=== PATIENT | female | born 1960 | race Caucasian/White ===

== ENCOUNTER 2017-03-05 20:38 | Emergency (ER) | payer MEDICARE, OTHER ==
[~2017-03-05] VITALS: Ht 170.2 cm; Wt 136.1 kg
[~2017-03-05 20:38] MED LIST: AMIT50 PO; ASPI325 PO; ATOR20 PO; CARV6.25 PO; CODACE30 PO; CODEINE #3 PO; CRUTCH3 USE; CYCL10 PO; DICL75ER PO; DULO60 PO; EXTRA STRENGTH500 MG PO; Ecotrin325 MG PO; HYDACE10B PO; Hydrochlorothia50 MG PO; LOSHYD PO; MELO7.5 PO; METF500 PO; OXYC5; Prilosec Otc20 MG PO; ROXICODONE5 MG PO
[2017-03-05] MEDS ORDERED: HYDCHL50 PO (21:41)
[2017-03-05 22:12] LABS: Influenza A Negative (NEGATIVE); Influenza B Negative (NEGATIVE)
[2017-03-05] MEDS ORDERED: GUAIFENESIN1200 MG PO (22:15)
[2017-03-05] MEDS ORDERED: DEXT30SU PO (22:15)
== END 2017-03-05 22:15 | disposition home or self-care (01) ==
LOC: ER 20:38
PROVIDERS: Physician Assistant
DX: B34.9 Viral infection, unspecified (principal); Z88.6 Allergy status to analgesic agent; Z88.5 Allergy status to narcotic agent; Z79.899 Other long term (current) drug therapy; Z79.84 Long term (current) use of oral hypoglycemic drugs; Z98.51 Tubal ligation status
CPT/HCPCS: 87804; 96372; 99283; J1885

== ENCOUNTER 2022-09-13 08:08 | Day surgery (SDC) | payer MEDICARE ==
[2022-09-13] VITALS (20 sets, daily range): BP systolic 114–184; BP diastolic 53–130
[~2022-09-13] VITALS: Ht 167 cm; Wt 108.1 kg
[~2022-09-13 08:08] MED LIST changes: +DEXT30SU PO; +GABA300 PO; +GUAIFENESIN1200 MG PO; +HYDCHL50 PO
--- NOTE | 2022-09-13 09:12 | NUR ---
Ambulatory in Day Surgery History, Chart, Medications and Allergies reviewed before start of procedure. Pre-Op teaching done. Pt verbalizes understanding. Patient States Post-Procedure ride home has been arranged.
--- NOTE | 2022-09-13 09:15 | NUR ---
Lungs clear anteriorly to Auscultation.
--- NOTE | 2022-09-13 10:18 | NUR ---
09/13/22 1018 Glenny Darling HISTORY, CHART, MEDICATIONS AND ALLERGIES REVIEWED BEFORE START OF PROCEDURE. PATIENT CONFIRMS NPO STATUS AND AGREES WITH SCHEDULED PROCEDURE. 3-LEAD EKG REVIEWED WITH PHYSICIAN PRIOR TO START OF PROCEDURE. MONITOR INTACT WITH CONTINUOUS PULSE OXIMETRY,CAPNOGRAPHY, 3-LEAD EKG, INTERMITTENT BP. SUPPLEMENTAL O2 TO BE TITRATED THROUGHOUT PROCEDURE TO MAINTAIN O2 SATURATION ABOVE 90%. PATIENT DETERMINED TO BE ASA APPROPRIATE FOR PROPOFOL SEDATION PRIOR TO START OF PROCEDURE BY DR. EDDY. BMI 39, DR. DOTSON.
--- NOTE | 2022-09-13 10:20 | NUR ---
REPORT RECIEVED. PT RESTLESS. VSS ON ROOM AIR. DR EDDY AT BEDSIDE
--- NOTE | 2022-09-13 10:47 | NUR ---
Discharge instructions reviewed with patient. Patient verbalizes understanding. Copy given to patient to take home. Patient up to Ambulate independently. Gait steady. UP TO RESTROOM Discharged via wheelchair to private car for ride home.
== END 2022-09-13 10:49 | disposition home or self-care (01) ==
LOC: ORSCMMR 08:08 → ORD 09:00 → ORSCMMR 09:00
PROVIDERS: Internal Medicine Gastroenterology
PROC: 0DB78ZX Excision of Stomach, Pylorus, Via Natural or Artificial Opening Endoscopic, Diagnostic (ICD-10-PCS; principal; 2022-09-13 09:00)
PROC: 0DB98ZX Excision of Duodenum, Via Natural or Artificial Opening Endoscopic, Diagnostic (ICD-10-PCS; principal; 2022-09-13 09:00)
PROC: 0DJD8ZZ Inspection of Lower Intestinal Tract, Via Natural or Artificial Opening Endoscopic (ICD-10-PCS; principal; 2022-09-13 09:00)
PROC: 0DB48ZX Excision of Esophagogastric Junction, Via Natural or Artificial Opening Endoscopic, Diagnostic (ICD-10-PCS; principal; 2022-09-13 09:00)
DX: D46.4 Refractory anemia, unspecified (principal); R19.5 Other fecal abnormalities; K21.9 Gastro-esophageal reflux disease without esophagitis; K57.30 Diverticulosis of large intestine without perforation or abscess without bleeding; K44.9 Diaphragmatic hernia without obstruction or gangrene; I10 Essential (primary) hypertension; E11.9 Type 2 diabetes mellitus without complications; E78.00 Pure hypercholesterolemia, unspecified; Z79.84 Long term (current) use of oral hypoglycemic drugs; Z79.899 Other long term (current) drug therapy; Z87.891 Personal history of nicotine dependence
CPT/HCPCS: 82947; 88305; 88342; A9270; J2250; J2704; J7120

== ENCOUNTER 2024-06-15 08:47 | Emergency (ER) | payer MEDICARE, OTHER ==
[~2024-06-15] VITALS: Ht 170.2 cm; Wt 113.4 kg
[2024-06-15] MEDS ORDERED: Ondansetron 4 MG SoluTab SL ONE (09:40)
[2024-06-15 09:57] LABS: BASOPHILS ABSOLUTE AUTO 0.06 K/mm3 (0.00-0.23); BASOPHILS PERCENT AUTO 0 % (0-2); EOSINOPHILS ABSOLUTE AUTO 0.03 K/mm3 (0.00-0.68); EOSINOPHILS PERCENT AUTO 0 % (0-6); Hematocrit 32.9 % (33.0-51.0); Hemoglobin 10.9 g/dL (11.5-16.0); IMMATURE GRAN ABSOLUTE AUTO 0.11 K/mm3 (0.00-0.10); IMMATURE GRAN PERCENT AUTO 1 % (0-1); LYMPHOCYTES ABSOLUTE AUTO 0.89 K/mm3 (0.84-5.20); LYMPHOCYTES PERCENT AUTO 5 % (21-46); MONOCYTES ABSOLUTE AUTO 1.43 K/mm3 (0.16-1.47); MONOCYTES PERCENT AUTO 8 % (4-13); Mean Corpuscular HGB 25.6 pg (26.0-34.0); Mean Corpuscular HGB Conc 33.1 g/dL (31.5-36.5); Mean Corpuscular Volume 77 fL (80-100); Mean Platelet Volume 9.2 fL (9.1-12.4); NEUTROPHILS ABSOLUTE AUTO 14.83 K/mm3 (1.96-9.15); NEUTROPHILS PERCENT AUTO 86 % (41-73); Platelet Count 330 K/mm3 (150-400); RDW Coefficient Variation 16.1 % (11.7-14.2); Red Blood Cell Count 4.26 M/mm3 (3.80-5.20); White Blood Cell Count 17.35 K/mm3 (4.00-11.30)
[2024-06-15 10:19] LABS: Albumin, Blood 2.9 g/dL (3.4-5.0); Albumin/Globulin Ratio 0.6 (0.8-1.8); Bilirubin, Total 0.9 mg/dL (0.1-1.0); Bun/Creatinine Ratio 16.9 (12.0-20.0); Calcium, Blood 8.5 mg/dL (8.5-10.1); Creatinine, Blood 1.48 mg/dL (0.40-1.00); Globulin, Blood 5.1 g/dL (2.2-4.0); Potassium, Blood 4.3 mmol/L (3.5-5.5)
[2024-06-15 10:45] LABS: Source, Urine Clean Catch
[2024-06-15 11:04] LABS: Appearance, Urine Cloudy (Clear); Bilirubin, Urine Neg (Neg); Blood, Urine 4+ (Neg); Color, Urine Yellow (P-Yellow); Glucose Qualitative, Urine Neg (Neg); Ketones, Urine Neg (Neg); Leukocyte Esterase, Urine 3+ (Neg); Nitrite, Urine Pos (Neg); Protein, Urine 3+ (Neg); Urobilinogen, Urine 2+ (Normal)
[2024-06-15 11:10] LABS: Squamous Epithelial Cells Mod /hpf (Few); White Blood Cells, Urine 50-100 /hpf (0-5)
[2024-06-15 11:11] LABS: Bacteria Many /hpf
[2024-06-15] MEDS ORDERED: AMITRIPTYLINE150 M6 PO (11:19)
[2024-06-15] MEDS ORDERED: LOSARTAN-HCTZ1 EAC5 PO (11:20)
[2024-06-15] MEDS ORDERED: CefTRIAXone Sodium 1,000 MG in NS 100 ML IV ONE (11:20)
[2024-06-15] MEDS ORDERED: NS 1,000 ML IV SCH (12:05)
[2024-06-15 14:35] VITALS: BP 150/80
[2024-06-15] MEDS ORDERED: CEFD300 PO (14:37)
[2024-06-15] MEDS ORDERED: ONDA4ODT MM (14:37)
== END 2024-06-15 14:56 | disposition home or self-care (01) ==
LOC: ER 08:47
PROVIDERS: Emergency Medicine
DX: N10 Acute pyelonephritis (principal); E11.9 Type 2 diabetes mellitus without complications; I10 Essential (primary) hypertension; E78.5 Hyperlipidemia, unspecified; Z88.6 Allergy status to analgesic agent; Z88.5 Allergy status to narcotic agent; Z79.1 Long term (current) use of non-steroidal anti-inflammatories (NSAID); Z79.84 Long term (current) use of oral hypoglycemic drugs; Z79.899 Other long term (current) drug therapy
CPT/HCPCS: 36415; 70450; 71045; 76770; 80053; 81001; 82550; 83605; 83690; 84484; 85025; 87040; 87077; 87086; 87186; 93005; 93010; 96365; 99284-25; A9270; J0696; J7030

== ENCOUNTER 2024-09-03 06:04 | Day surgery (SDC) | payer MEDICARE ==
[~2024-09-03] VITALS: Ht 170.2 cm; Wt 109.9 kg
[~2024-09-03 06:04] MED LIST changes: +AMITRIPTYLINE150 M6 PO; +CEFD300 PO; +LOSARTAN-HCTZ1 EAC5 PO; +ONDA4ODT MM
[2024-09-03] MEDS ORDERED: Chlorhexidine Mouth Care 15 ML UDC ONE (06:07)
[2024-09-03] MEDS ORDERED: CeFAZolin Sodium 2,000 MG VIAL ONE (06:07)
[2024-09-03] MEDS ORDERED: NS 0 ML IV ONE (06:18)
[2024-09-03] MEDS ORDERED: Tranexamic Acid 100 ML IV ONE ×2 (06:20→11:35)
[2024-09-03] MEDS ORDERED: NEURONTIN300 MG PO (06:34)
[2024-09-03] MEDS ORDERED: CYCL10 PO (06:35)
[2024-09-03] MEDS ORDERED: Rocuronium Bromide 10 MG/ML 5ML Injection IV ONE ×2 (07:00→11:05)
[2024-09-03] MEDS ORDERED: FentaNYL Citrate 50 MCG/ML 2 ML Injection ONE (07:00)
[2024-09-03] MEDS ORDERED: Midazolam HCl 1MG / ML 2ML Vial ONE (07:02)
[2024-09-03] MEDS ORDERED: Ropivacaine 0.5% HCL/PF 5 MG/ML 30ML Vial ONE (07:04)
[2024-09-03] MEDS ORDERED: Lidocaine HCl 4% 5 ML SDA ONE (07:04)
[2024-09-03] MEDS ORDERED: ACET500 (07:16)
--- NOTE | 2024-09-03 07:18 | NUR ---
09/03/24 0718 MONY BLANK PT HAS SMALL SCRATCH ON RIGH UPPER ARM SCAB ON LEF KNEE SCRATCHES ON LEFT FOREARM DR DOTSON
[2024-09-03] MEDS ORDERED: Sugammadex Sodium 200 MG/2ML SDV (100 MG/ML) ONE (08:04)
--- NOTE | 2024-09-03 08:22 | NUR ---
09/03/24 0822 Avery Tong 1 GM STARTED AT 0758 BY NICHOLE HARTMANN
[2024-09-03] MEDS ORDERED: Dexamethasone Sod Phos 10 MG/ML 1ML VIAL ONE ×2 (08:48→08:49)
[2024-09-03] MEDS ORDERED: Ondansetron HCl 2 MG / ML 2ML Vial ONE (08:48)
[2024-09-03] MEDS ORDERED: Ketorolac Tromethamine 30mg Vial ONE (08:49)
[2024-09-03] MEDS ORDERED: Phenylephrine HCl 100 MCG/ML-NS 10MLSYR (1MG/10ML) ONE (08:54)
--- NOTE | 2024-09-03 11:31 | NUR ---
09/03/24 1131 REJI LOCKETT INFORMED THAT PT HAS 2 "VERY LOOSE" TEETH IN UPPER FRONT. ORAL AIRWAY IN PLACE WITH OXYGEN (N/C) OVER ORAL AIRWAY. PT CURRENTLY SATING AT 100%
--- NOTE | 2024-09-03 12:02 | NUR ---
09/03/24 1202 REJI LOCKETT REPORT GIVEN TO SARA HUTCHINSON RN AND ROSEMARIE HENDRICKS RN
[2024-09-03 13:00] VITALS: BP 120/90
== END 2024-09-03 12:51 | disposition home or self-care (01) ==
LOC: ORSCSDS 06:04
PROVIDERS: Orthopaedic Surgery
PROC: 0RRJ00Z Replacement of Right Shoulder Joint with Reverse Ball and Socket Synthetic Substitute, Open Approach (ICD-10-PCS; principal; 2024-09-03 07:30)
DX: M19.011 Primary osteoarthritis, right shoulder (principal); E11.9 Type 2 diabetes mellitus without complications; I10 Essential (primary) hypertension; Z87.891 Personal history of nicotine dependence; Z79.84 Long term (current) use of oral hypoglycemic drugs; Z79.899 Other long term (current) drug therapy
CPT/HCPCS: 73030; 82947; A9270; C1713; C1776; J0690; J1100; J1885; J2003; J2250; J2371; J2405; J2704; J2795; J3010; J7120